=== PATIENT | female | born 1950 | race American Indian/Alaskan Native ===

== ENCOUNTER 2017-09-22 14:16 | Emergency (ER) | payer MEDICARE, MEDICAID ==
[2017-09-22 14:17] VITALS: BMI 25.6
[2017-09-22 15:11] VITALS: RESP 20
--- NOTE | 2017-09-22 15:37 | C.PDOC ---
History Of Present Illness 66 y/o female, history of HTN and TIA, presents to ED with c/o headache, dizziness, left sided weakness and numbness since yesterday. Patient c/o mild left sided pain. Denies fever, chills, chest pain, SOB, nausea, vomiting, or other associated symptoms. Time Seen by Provider: 09/22/17 15:22 Chief Complaint (Nursing): Weakness/Neurological Deficit History Per: Patient History/Exam Limitations: no limitations Onset/Duration Of Symptoms: Days Current Symptoms Are (Timing): Still Present Seizure Or Post-ictal Symptoms: None Fall Associated With With Symptoms: No Recent travel outside of the [place]: No Past Medical History Reviewed: Historical Data, Nursing Documentation, Vital Signs Vital Signs: Last Vital Signs Temp 98.1 F 09/22/17 16:47 Pulse 77 09/22/17 16:47 Resp 20 09/22/17 16:47 BP 117/76 09/22/17 16:47 Pulse Ox 98 09/22/17 16:47 - Medical History PMH: Arthritis, Back Problems, Depression, HTN, TIA (jun 2015 slight left sided weakness) - [facility] Procedures CORONAR ARTERIOGR-2 CATH (11/02/03) ENDO EXCISION/DEST OF LESION OR TISSUE OF STOMACH (04/08/07) LEFT HEART CARDIAC CATH (11/02/03) LT HEART ANGIOCARDIOGRAM (11/02/03) Family History: States: Unknown Family Hx - Social History Hx Alcohol Use: No Hx Substance Use: No - Immunization History Hx Tetanus Toxoid Vaccination: No Hx Influenza Vaccination: No Hx Pneumococcal Vaccination: No Review Of Systems Except As Marked, All Systems Reviewed And Found Negative. Constitutional: Negative for: Fever, Chills Cardiovascular: Negative for: Chest Pain Respiratory: Negative for: Cough, Shortness of Breath Gastrointestinal: Negative for: Nausea, Vomiting Skin: Negative for: Rash Neurological: Positive for: Weakness (L sided), Numbness (L sided), Headache, Dizziness. Negative for: Change in Speech Physical Exam - Physical Exam Appears: Non-toxic, No Acute Distress Skin: Normal Color, Warm, Dry Head: Atraumatic, Normacephalic Eye(s): bilateral: Normal Inspection Oral Mucosa: Moist Chest: Symmetrical Cardiovascular: Rhythm Regular Respiratory: Normal Breath Sounds, No Rales, No Rhonchi, No Wheezing Gastrointestinal/Abdominal: Normal Exam, Soft, No Tenderness Back: Normal Inspection Extremity: Normal ROM, Capillary Refill (< 2 sec.) Neurological/Psych: Oriented x3, Normal Speech, Normal Cognition ED Course And Treatment - Laboratory Results Result Diagrams: 09/22/17 15:43 09/22/17 15:43 ECG: Interpreted By Me ECG Rhythm: Sinus Rhythm ECG Interpretation: No Acute Changes Interpretation Of ECG: no ST/T wave abnormalities Rate From EC (bpm) O2 Sat by Pulse Oximetry: 100 (RA) Pulse Ox Interpretation: Normal - Radiology CXR: Interpreted by Me CXR Interpretation: Yes: No Acute Disease Medical Decision Making Medical Decision Making: atypical migraine, vs cva/tia- labs imging pendign Plan: CT head, EKG, CxR, bloodwork. Tylenol. 600: pt reassesed: labs unremarkable, advised pt to be admitted for neuro eval and mri to r/o cva- pt refuses, states " i rather go home and see the doctor". advised outpt fu and return precautions Progress: The patient declines admission to the hospital and wishes to leave the Emergency Department. This action is against my medical advice to the patient and the decision was made with informed refusal. The patient was told that admission is necessary and a full explanation of the rationale was given. The risks of leaving were explained to the patient and include, but are not limited to, worsening of known or currently unknown conditions, permanent disability and from undiagnosed or untreated conditions. The patient has the capacity to make this informed decision and understands the clinical situation and my explanation of the risks of leaving. The patient voluntarily accepts these risks and a signed AMA form documenting our conversation. The patient was given the opportunity to ask questions and reconsider. The patient was encouraged to return to the Emergency Department at any time for further care. Disposition - Disposition Referrals: [facility] [Outside] [facility] [Outside] Sohan Avlarado MD [Staff Provider] - Disposition: AGAINST MEDICAL ADVICE Disposition Time: 04:00 Condition: UNKNOWN Additional Instructions: please follow up with your doctor/specialsit. return to er with worsening symptoms or concerns. Prescriptions: Acetaminophen/Butalbital/Caf [Fioricet] 1 tab PO Q8 PRN #20 tab PRN Reason: Headache Instructions: Acute Headache (ED), Weakness (ED), Against Medical Advice (ED) Forms: [employer] (Iranian) - Clinical Impression Clinical Impression: Weakness of limb, Dizziness - Scribe Statement The provider has reviewed the documentation as recorded by the Scribe SM All medical record entries made by the Scribe were at my direction and personally dictated by me. I have reviewed the chart and agree that the record accurately reflects my personal performance of the history, physical exam, medical decision making, and the department course for this patient. I have also personally directed, reviewed, and agree with the discharge instructions and disposition.
[2017-09-22 15:48] LABS: BASO # 0.1 K/uL (0.0-0.2); BASO % 0.7 % (0.0-2.0); EOS # 0.3 K/uL (0.0-0.7); EOS % 3.6 % (0.0-4.0); HEMATOCRIT 35.7 % (34.0-47.0); LYMPH # 3.3 K/uL (1.0-4.3); LYMPH % 38.1 % (20.0-40.0); MEAN CORPUSCULAR HEMOGLOBIN 29.2 pg (27.0-31.0); MEAN CORPUSCULAR HGB CONC 32.8 g/dL (33.0-37.0); MEAN PLATELET VOLUME 7.6 fL (7.2-11.7); MONO # 0.5 K/uL (0.0-0.8); MONO % 5.4 % (0.0-10.0); RED CELL DISTRIBUTION WIDTH 15.5 % (11.5-14.5); WHITE BLOOD COUNT 8.7 K/uL (4.8-10.8)
[2017-09-22 16:14] LABS: ALKALINE PHOSPHATASE 80 U/L (38-126); ALT/SGPT 27 U/L (9-52); AST/SGOT 19 U/L (14-36); BILIRUBIN,TOTAL 0.4 mg/dL (0.2-1.3); BLOOD UREA NITROGEN 9 mg/dL (7-17); CALCIUM 9.2 mg/dl (8.6-10.4); CARBON DIOXIDE 28 mmol/L (22-30); CHLORIDE 102 mmol/L (98-107); CHOLESTEROL 192 mg/dL (0-199); GFR AFRICAN-AMERICAN > 60; GLUCOSE,RANDOM 93 mg/dL (65-105); POTASSIUM 3.7 mmol/L (3.6-5.2); SODIUM 141 mmol/L (132-148); TOTAL PROTEIN 8.6 g/dL (6.3-8.3)
[2017-09-22 16:26] LABS: ALB/GLOB RATIO 1.1 (1.0-2.1)
--- NOTE | 2017-09-22 16:27 | CT ---
PROCEDURE: CT HEAD WITHOUT CONTRAST. HISTORY: callaway/weakness COMPARISON: 07/01/2015. TECHNIQUE: Axial computed tomography images were obtained through the head/brain without intravenous contrast. Radiation dose: Total exam DLP = 811.48 MGy-cm. This CT exam was performed using one or more of the following dose reduction techniques: Automated exposure control, adjustment of the mA and/or kV according to patient size, and/or use of iterative reconstruction technique. FINDINGS: HEMORRHAGE: No intracranial hemorrhage. BRAIN: Gould-white matter differentiation is preserved. There are mild chronic microangiopathic changes. There is no mass, mass effect or abnormal extra-axial fluid collection. VENTRICLES: The ventricles are normal in size, shape and configuration. CALVARIUM: The skull base and calvarium are normal. PARANASAL SINUSES: Predominantly clear. MASTOID AIR CELLS: Predominantly clear. OTHER FINDINGS: None. IMPRESSION: No acute intracranial abnormality.
[2017-09-22 16:32] LABS: RBC URINE < 1 /hpf (0-3); TRANSITIONAL EPITHIAL < 1 /hpf (0-3); URINE BACTERIA RARE (<OCC); URINE BILIRUBIN NEGATIVE (NEGATIVE); URINE BLOOD NEGATIVE (NEGATIVE); URINE COLOR Straw (YELLOW); URINE GLUCOSE (UA) NORMAL (Normal); URINE KETONE NEGATIVE (NEGATIVE); URINE PROTEIN NEGATIVE (NEGATIVE); URINE UROBILINOGEN NORMAL mg/dL (0.2-1.0); WBC URINE 1 /hpf (0-5)
--- NOTE | 2017-09-22 16:32 | RAD ---
HISTORY: weakness COMPARISON: Chest radiograph dated 07/01/2015. FINDINGS: LUNGS: No active pulmonary disease. PLEURA: No significant pleural effusion identified, no pneumothorax apparent. CARDIOVASCULAR: Normal. OSSEOUS STRUCTURES: Unchanged. Dextro convex curvature of the thoracic spine. VISUALIZED UPPER ABDOMEN: Normal. OTHER FINDINGS: None. IMPRESSION: No active disease.
[2017-09-22 16:37] LABS: URINE LEUKOCYTE ESTERASE NEGATIVE Leu/uL (Negative)
[2017-09-22 16:49] VITALS: BP 117/76; PULSE 77; TEMP 98.1
[2017-09-22] MEDS ORDERED: Apap-Butalbital-Caffeine 325-50-40mg Tab ONE (16:52)
[2017-09-22] MEDS ORDERED: Apap-Butalbital-Caffeine 325-50-40mg Tab PO STA (17:09)
[2017-09-22 18:20] VITALS: O2SAT 100
== END 2017-09-22 16:49 | disposition left against medical advice (07) ==
LOC: C.ER 14:16
DX: R53.1 Weakness (principal); R42 Dizziness and giddiness

== ENCOUNTER 2018-05-12 18:30 | Emergency (ER) | payer MEDICARE ==
[2018-05-12 18:31] VITALS: BMI 25.6
--- NOTE | 2018-05-12 19:44 | C.PDOC ---
History Of Present Illness 67 year old female presents to the ED c/o headache and intermittent blurry vision. Patient reports she fell 2 weeks ago and hit her head. Patient denies LOC, slurred speech, fever, chills, nausea, vomit, diarrhea, weakness, numbness. Time Seen by Provider: 05/12/18 19:43 Chief Complaint (Nursing): Weakness/Neurological Deficit History Per: Patient History/Exam Limitations: no limitations Onset/Duration Of Symptoms: Days Current Symptoms Are (Timing): Still Present Recent travel outside of the [place]: No Additional History Per: Patient Past Medical History Reviewed: Historical Data, Nursing Documentation, Vital Signs Vital Signs: Last Vital Signs Temp 98.7 F 05/12/18 19:02 Pulse 71 05/12/18 20:01 Resp 16 05/12/18 20:01 BP 156/84 H 05/12/18 20:01 Pulse Ox 97 05/12/18 21:05 - Medical History PMH: Arthritis, Back Problems, Depression, HTN, TIA (jun 2015 slight left sided weakness) Denies: Chronic Kidney Disease Surgical History: No Surg Hx - [facility] Procedures CORONAR ARTERIOGR-2 CATH (11/02/03) ENDO EXCISION/DEST OF LESION OR TISSUE OF STOMACH (04/08/07) LEFT HEART CARDIAC CATH (11/02/03) LT HEART ANGIOCARDIOGRAM (11/02/03) Family History: States: Unknown Family Hx - Social History Hx Alcohol Use: No Hx Substance Use: No - Immunization History Hx Tetanus Toxoid Vaccination: No Hx Influenza Vaccination: No Hx Pneumococcal Vaccination: No Review Of Systems Constitutional: Negative for: Fever, Chills Eyes: Positive for: Vision Change Cardiovascular: Negative for: Chest Pain, Palpitations Respiratory: Negative for: Cough, Shortness of Breath Gastrointestinal: Negative for: Nausea, Vomiting Neurological: Positive for: Headache. Negative for: Weakness, Numbness, Dizziness Physical Exam - Physical Exam Appears: Well, Non-toxic, No Acute Distress Skin: Warm, Dry, Ecchymosis (small fading bruise over left forehead) Head: Normacephalic, Abrasion (small fading bruise over left forehead) Eye(s): bilateral: Normal Inspection, PERRL, EOMI Oral Mucosa: Moist Neck: Supple Chest: Symmetrical Cardiovascular: Rhythm Regular Respiratory: No Rales, No Rhonchi, No Wheezing Gastrointestinal/Abdominal: Soft, No Tenderness, No Guarding, No Rebound Back: Normal Inspection Extremity: No Tenderness, No Swelling Extremity: Bilateral: Atraumatic, Normal Color And Temperature, Normal ROM Neurological/Psych: Oriented x3, Normal Speech Gait: Steady ED Course And Treatment - Laboratory Results Result Diagrams: 05/12/18 19:58 05/12/18 19:58 O2 Sat by Pulse Oximetry: 97 (ON RA) Pulse Ox Interpretation: Normal - CT Scan/US CT head Other Rad Studies (CT/US): Read By Radiologist, Radiology Report Reviewed CT/US Interpretation: EXAM: CT Head Without Intravenous Contrast. CLINICAL HISTORY: 67 years old, female; Pain and injury or trauma; Fall; Initial encounter;. Concussion / head injury; Headache; Headache not specified; Additional info: R/O bleed, S/P fall. TECHNIQUE: Axial computed tomography images of the head/brain without intravenous contrast. All CT scans at this facility use at least one of these dose optimization techniques: automated. exposure control; mA and/or kV adjustment per patient size (includes targeted exams where dose is. matched to clinical indication); or iterative reconstruction. Coronal and sagittal reformatted images. were created and reviewed. COMPARISON: No relevant prior studies available. FINDINGS: Brain: Mild small vessel ischemic/degenerative changes. No hemorrhage. Ventricles: Unremarkable. No ventriculomegaly. Bones/joints: Unremarkable. No acute fracture. Soft tissues: Unremarkable. Sinuses: Unremarkable as visualized. No acute sinusitis. Mastoid air cells: Unremarkable as visualized. No mastoid effusion. IMPRESSION: Mild small vessel ischemic/degenerative changes. Thank you for allowing us to participate in the care of your patient. Dictated and Authenticated by: Mariano Caruso MD. 05/12/2018 9:02 PM Eastern Time ([place] & [place]) Progress Note: Plan: - CT head. - EKG. - Labs. - UA Reevaluation Time: 21:49 Reassessment Condition: Improved Disposition Counseled Patient/Family Regarding: Studies Performed, Diagnosis, Need For Followup - Disposition Referrals: Gerardo Lara DO [Staff Provider] - Disposition: HOME/ ROUTINE Disposition Time: 19:44 Condition: FAIR Additional Instructions: Please return if symptoms recur Instructions: Concussion, Adult (DC), Minor Head Injury (DC) Forms: [employer] (Maori) - Clinical Impression Clinical Impression: Fall, Minor head injury without loss of consciousness, Concussion - Scribe Statement The provider has reviewed the documentation as recorded by the Scribe Eric Funes All medical record entries made by the Scribe were at my direction and personally dictated by me. I have reviewed the chart and agree that the record accurately reflects my personal performance of the history, physical exam, medical decision making, and the department course for this patient. I have also personally directed, reviewed, and agree with the discharge instructions and disposition.
[2018-05-12 20:08] LABS: SQUAMOUS EPITHIAL < 1 /hpf (0-5); URINE BILIRUBIN NEGATIVE (NEGATIVE); URINE BLOOD NEGATIVE (NEGATIVE); URINE CLARITY Clear (Clear); URINE COLOR Straw (YELLOW); URINE GLUCOSE (UA) NORMAL (Normal); URINE LEUKOCYTE ESTERASE TRACE Leu/uL (Negative); URINE PROTEIN NEGATIVE (NEGATIVE); URINE UROBILINOGEN NORMAL mg/dL (0.2-1.0)
[2018-05-12 20:16] LABS: ALB/GLOB RATIO 1.5 (1.0-2.1); ALBUMIN 4.6 g/dL (3.5-5.0); ALT/SGPT 30 U/L (9-52); AST/SGOT 16 U/L (14-36); BLOOD UREA NITROGEN 14 mg/dL (7-17); CALCIUM 9.7 mg/dl (8.6-10.4); GFR AFRICAN-AMERICAN > 60; GFR NON-AFRICAN AMERICAN > 60
[2018-05-12 20:24] LABS: PROTHROMBIN TIME 11.1 SECONDS (9.7-12.2)
[2018-05-12 20:30] LABS: BASO # 0.1 K/uL (0.0-0.2); BASO % 0.8 % (0.0-2.0); EOS # 0.2 K/uL (0.0-0.7); EOS % 1.3 % (0.0-4.0); HEMOGLOBIN 12.4 g/dL (11.0-16.0); LYMPH # 3.9 K/uL (1.0-4.3); LYMPH % 28.1 % (20.0-40.0); MEAN CELL VOLUME 93.1 fL (81.0-99.0); MEAN CORPUSCULAR HEMOGLOBIN 30.7 pg (27.0-31.0); MEAN PLATELET VOLUME 7.3 fL (7.2-11.7); MONO # 0.9 K/uL (0.0-0.8); MONO % 6.8 % (0.0-10.0); NEUT # 8.6 K/uL (1.8-7.0); NRBC % 0.2 % (0.0-2.0); RBC 4.03 Mil/uL (3.80-5.20); WHITE BLOOD COUNT 13.7 K/uL (4.8-10.8)
[2018-05-12 22:01] VITALS: BP 151/88; PULSE 63; RESP 18; TEMP 97.9; O2SAT 100
--- NOTE | 2018-05-13 09:06 | CT ---
Date of service: 05/12/2018 PROCEDURE: CT HEAD WITHOUT CONTRAST. HISTORY: R/O Bleed, s/p fall COMPARISON: None available. TECHNIQUE: Axial computed tomography images were obtained through the head/brain without intravenous contrast. Radiation dose: Total exam DLP = 689 mGy-cm. This CT exam was performed using one or more of the following dose reduction techniques: Automated exposure control, adjustment of the mA and/or kV according to patient size, and/or use of iterative reconstruction technique. FINDINGS: HEMORRHAGE: No intracranial hemorrhage. BRAIN: No mass effect or edema. Scattered focal lucencies in the subcortical and periventricular white matter suggestive for chronic microvascular ischemic change. VENTRICLES: Unremarkable. No hydrocephalus. CALVARIUM: Unremarkable. PARANASAL SINUSES: Unremarkable as visualized. No significant inflammatory changes. MASTOID AIR CELLS: Unremarkable as visualized. No inflammatory changes. OTHER FINDINGS: None. IMPRESSION: Chronic microvascular ischemic change. If symptoms persists, consider MRI. These findings were preliminarily reported at 9:02 p.m. on 05/12/[address] Mariano Caruso from [facility].
== END 2018-05-12 22:01 | disposition home or self-care (01) ==
LOC: C.ER 18:30
DX: S06.0X0A Concussion without loss of consciousness, initial encounter (principal); W19.XXXA Unspecified fall, initial encounter
CPT/HCPCS: 70450; 80053; 81001; 85025; 85610; 85730; 96374; 99285; J1885

== ENCOUNTER 2018-12-16 13:49 | Outpatient (CLI) | payer MEDICARE | END 2018-12-16 13:50 | disposition home or self-care (01) | LOC: C.CTH 13:49 | DX: R07.89 Other chest pain (principal) ==

== ENCOUNTER 2019-01-06 13:47 | Outpatient (CLI) | payer MEDICARE | END 2019-01-06 13:48 | disposition home or self-care (01) | LOC: C.USIC 13:47 | DX: N28.1 Cyst of kidney, acquired (principal) ==

== ENCOUNTER 2019-01-13 12:14 | Outpatient (CLI) | payer MEDICARE | END 2019-01-13 12:15 | disposition home or self-care (01) | LOC: C.MAMMO 12:14 → C.USIC 12:15 | DX: N64.4 Mastodynia (principal) ==